=== PATIENT | female | born 1975 | race Hispanic/Latino ===

== ENCOUNTER 2016-07-22 12:49 | Emergency (ER) | payer OTHER ==
[2016-07-22 12:49] VITALS: BMI 24.3
[2016-07-22 12:56] VITALS: BP 134/71; PULSE 79; RESP 18; TEMP 98.1; O2SAT 98
[2016-07-22] MEDS ORDERED: Fluorescein 1 mg Ophthalmic Strip ONE (12:57)
--- NOTE | 2016-07-22 13:10 | ED PDOC ---
HPI: Eye Injury/Pain Time Seen by Provider: 07/22/16 12:59 Chief Complaint (Nursing): Eye Problem Chief Complaint (Provider): Eye Problem History Per: Patient History/Exam Limitations: no limitations Onset/Duration Of Symptoms: Hrs (this morning) Current Symptoms Are (Timing): Still Present Injury To Eye?: No Additional Complaint(s): 40 y/o female presents to the Emergency Department with a complaint of left lower eyelid pain that started as of waking up this morning. Patient denies any active drainage or vision change or loss. No dizziness or headache. Patient does not wear contact lenses. PMD: Ria Gallo MD Past Medical History Reviewed: Historical Data, Nursing Documentation, Vital Signs Vital Signs: Last Vital Signs Temp 98.1 F 07/22/16 12:54 Pulse 79 07/22/16 12:54 Resp 18 07/22/16 12:54 BP 134/71 07/22/16 12:54 Pulse Ox 98 07/22/16 12:54 - Medical History PMH: Anxiety, Gastritis - Surgical History Surgical History: Hernia Repair (as a child - bilateral inguinal repair), Tonsillectomy, Other surgeries: LASIK eye surgery, breast reduction, salpingectomy, abdominoplasty - Family History Family History: States: No Known Family Hx - Living Arrangements Living Arrangements: With Family - Social History Current smoker - smoking cessation education provided: No Ex-Smoker (has not smoked in the last 12 months): No Alcohol: Occasional Drugs: Denies - Immunization History Hx Influenza Vaccination: Yes - Home Medications Home Medications: Ambulatory Orders Medication Instructions Recorded Quetiapine Fumarate [Seroquel] HS 01/26/14 Sertraline [Zoloft] HS 01/26/14 Guaifenesin/Pseudoephedrne HCl 1 tab PO DAILY PRN #30 ter 01/04/15 [Mucinex D 600 mg-60 mg] Methylprednisolone [Medrol Dose 4 mg PO DAILY #21 mg 01/04/15 Pack (21 tabs)] Naproxen 375 mg PO Q8 PRN #21 tab 02/26/15 Ciprofloxacin HCl [Cipro] 500 mg PO BID #14 tablet 08/27/15 Fluconazole [Diflucan] 150 mg PO ONCE #1 tab 09/18/15 Metronidazole [Metrogel] 60 gm VAG HS #1 packet 08/10/16 Erythromycin 0.5% [Ilytocin] 3.5 gm TOP QID #1 tube 07/22/16 - Allergies Allergies/Adverse Reactions: Allergies Allergy/AdvReac Type Severity Reaction Status Date / Time No Known Allergies Allergy Verified 07/22/16 12:53 Review of Systems ROS Statement: Except As Marked, All Systems Reviewed And Found Negative Eyes: Positive for: Pain (left lower eyelid), Eyelid Inflammation (lower left ) . Negative for: Vision Change Gastrointestinal: Negative for: Nausea, Vomiting Neurological: Negative for: Headache, Dizziness Physical Exam - Reviewed Nursing Documentation Reviewed: Yes Vital Signs Reviewed: Yes - Physical Exam Appears: Positive for: Well, Non-toxic, No Acute Distress Head Exam: Positive for: ATRAUMATIC, NORMAL INSPECTION, NORMOCEPHALIC Skin: Positive for: Normal Color, Warm, Dry Eye Exam: Positive for: EOMI, PERRL, Other (Slight swelling of the lower left eye lid consistent with an early developing stye, no active drainage, right eye wnl). Negative for: Normal appearance Neurologic/Psych: Positive for: Alert, Oriented - ECG O2 Sat by Pulse Oximetry: 98 (RA) Pulse Ox Interpretation: Normal Medical Decision Making Medical Decision Making: Time: 12:59 Initial Impression: Left lower eyelid pain Initial Plan: --Stain eye to check for any scratches on the cornea - examination with tetracaine drops and fluoroscein stain reveals no uptake Will d/c with rx erythromycin eye ointment. Patient also instructed to apply warm compresses with Epsom salts to affected areas often as possible. Ophthalmology referral provided, advised follow up in 1-2 days. Scribe Attestation: Documented by Delaney Mcdonnell, acting as a scribe for Misty Roberts PA-C. Provider Scribe Attestation: All medical record entries made by the Scribe were at my direction and personally dictated by me. I have reviewed the chart and agree that the record accurately reflects my personal performance of the history, physical exam, medical decision making, and the department course for this patient. I have also personally directed, reviewed, and agree with the discharge instructions and disposition. Disposition - Clinical Impression Clinical Impression: Sty, external - Patient ED Disposition Is Patient to be Admitted: No Counseled Patient/Family Regarding: Studies Performed, Diagnosis, Need For Followup, Rx Given - Disposition Referrals: Jason Hall MD [Staff Provider] - Disposition: Routine/Home Disposition Time: 13:25 Condition: STABLE Additional Instructions: Apply warm compresses with epsom salts to affected area as often as possible. Over the counter advil or tylenol for pain as needed. Take rx meds as directed. Follow up with eye doctor for any persistent symptoms. Prescriptions: Erythromycin 0.5% [Ilytocin] 3.5 gm TOP QID #1 tube Instructions: Earl (ED)
== END 2016-07-22 14:19 | disposition home or self-care (01) ==
LOC: H.ER 12:49
DX: H00.14 Chalazion left upper eyelid (principal)

== ENCOUNTER 2016-08-04 16:22 | Emergency (ER) | payer OTHER ==
[2016-08-04 16:22] VITALS: BMI 24.3
[2016-08-04 16:37] VITALS: BP 112/71; PULSE 84; RESP 16; TEMP 98.7; O2SAT 99
--- NOTE | 2016-08-04 18:12 | ED PDOC ---
HPI:Nausea, Vomiting, Diarrhea Time Seen by Provider: 08/04/16 16:56 Chief Complaint (Nursing): GI Problem Chief Complaint (Provider): GI Problem History Per: Patient History/Exam Limitations: no limitations Onset/Duration Of Symptoms: Days (x4) Current Symptoms Are (Timing): Still Present Additional Complaint(s): Jane Brown is a 41 year old female with a history of gastritis that presents to the ED with a chief complaint of nausea and a loss of appetite that she has been experiencing for the past four days. Patient denies experiencing any pain. Past Medical History Reviewed: Historical Data, Nursing Documentation, Vital Signs Vital Signs: Last Vital Signs Temp 98.7 F 08/04/16 16:35 Pulse 84 08/04/16 16:35 Resp 16 08/04/16 16:35 BP 112/71 08/04/16 16:35 Pulse Ox 99 08/04/16 16:35 - Medical History PMH: Anxiety, Gastritis - Surgical History Surgical History: Hernia Repair (as a child - bilateral inguinal repair), Tonsillectomy, - Family History Family History: States: Unknown Family Hx - Immunization History Hx Influenza Vaccination: Yes - Home Medications Home Medications: Ambulatory Orders Medication Instructions Recorded Quetiapine Fumarate [Seroquel] HS 01/26/14 Sertraline [Zoloft] HS 01/26/14 Guaifenesin/Pseudoephedrne HCl 1 tab PO DAILY PRN #30 ter 01/04/15 [Mucinex D 600 mg-60 mg] Methylprednisolone [Medrol Dose 4 mg PO DAILY #21 mg 01/04/15 Pack (21 tabs)] Naproxen 375 mg PO Q8 PRN #21 tab 02/26/15 Ciprofloxacin HCl [Cipro] 500 mg PO BID #14 tablet 08/27/15 Fluconazole [Diflucan] 150 mg PO ONCE #1 tab 09/18/15 Metronidazole [Metrogel] 60 gm VAG HS #1 packet 09/18/15 Erythromycin 0.5% [Ilytocin] 3.5 gm TOP QID #1 tube 07/22/16 Famotidine [Pepcid] 20 mg PO BID #28 tab 08/04/16 Ondansetron ODT [Zofran ODT] 4 mg PO QID #20 odt 08/04/16 - Allergies Allergies/Adverse Reactions: Allergies Allergy/AdvReac Type Severity Reaction Status Date / Time No Known Allergies Allergy Verified 07/22/16 12:53 Review of Systems Constitutional: Positive for: Other (loss of appetite) Gastrointestinal: Positive for: Nausea (x4 days). Negative for: Abdominal Pain Physical Exam - Reviewed Nursing Documentation Reviewed: Yes Vital Signs Reviewed: Yes - Physical Exam Appears: Positive for: Non-toxic, No Acute Distress Head Exam: Positive for: ATRAUMATIC, NORMOCEPHALIC Skin: Positive for: Normal Color, Warm Cardiovascular/Chest: Positive for: Regular Rate, Rhythm. Negative for: Murmur Respiratory: Positive for: Normal Breath Sounds. Negative for: Wheezing Gastrointestinal/Abdominal: Positive for: Normal Exam, Soft. Negative for: Tenderness Neurologic/Psych: Positive for: Alert, Oriented. Negative for: Motor/Sensory Deficits - Laboratory Results Result Diagrams: 08/04/16 18:15 08/04/16 18:15 - ECG O2 Sat by Pulse Oximetry: 99 (RA) Pulse Ox Interpretation: Normal Medical Decision Making Medical Decision Making: Impression: Nausea Plan: * CMP * Lipase * Urine dipstick * Urine * Reevaluation 18:10 Patient advised to follow up with Dr. Sullivan. Given Rx for Pepcid and Zofran , stable for discharge home. Scribe Attestation: Documented by Tiffanie Tiwari, acting as a scribe for Latosha Mcnally PA-C. Provider Scribe Attestation: All medical record entries made by the Scribe were at my direction and personally dictated by me. I have reviewed the chart and agree that the record accurately reflects my personal performance of the history, physical exam, medical decision making, and the department course for this patient. I have also personally directed, reviewed, and agree with the discharge instructions and disposition. Disposition - Clinical Impression Clinical Impression: Nausea - Patient ED Disposition Is Patient to be Admitted: No Counseled Patient/Family Regarding: Diagnosis, Need For Followup, Rx Given - Disposition Referrals: Tomasz Sullivan MD, PhD [Staff Provider] - Disposition: Routine/Home Disposition Time: 18:10 Condition: GOOD Prescriptions: Famotidine [Pepcid] 20 mg PO BID #28 tab Ondansetron ODT [Zofran ODT] 4 mg PO QID #20 odt Instructions: Acute Nausea and Vomiting (ED)
[2016-08-04 18:25] LABS: BASO % 0.7 % (0.0-2.0); EOS # 0.1 K/uL (0.0-0.7); EOS % 1.2 % (0.0-4.0); LYMPH # 1.8 K/uL (1.0-4.3); MEAN CELL VOLUME 89.8 fl (81.0-99.0); MEAN CORPUSCULAR HEMOGLOBIN 30.1 pg (27.0-31.0); MEAN CORPUSCULAR HGB CONC 33.5 g/dL (33.0-37.0); MEAN PLATELET VOLUME 7.5 fl (7.2-11.7); MONO # 0.6 K/uL (0.0-0.8); MONO % 9.7 % (0.0-10.0); NEUT # 3.6 K/uL (1.8-7.0); NEUT % 58.4 % (50.0-75.0); RBC 3.98 Mil/uL (3.80-5.20); RED CELL DISTRIBUTION WIDTH 12.7 % (11.5-14.5); WHITE BLOOD COUNT 6.1 K/uL (4.8-10.8)
[2016-08-04 18:39] LABS: ALB/GLOB RATIO 1.5 (1.0-2.1); ALBUMIN 4.8 g/dL (3.5-5.0); ALT/SGPT 34 U/L (9-52); AST/SGOT 54 U/L (14-36); BLOOD UREA NITROGEN 15 mg/dl (7-17); CALCIUM 9.2 mg/dL (8.4-10.2); GFR AFRICAN-AMERICAN > 60; GFR NON-AFRICAN AMERICAN > 60; LIPASE 136 U/L (23-300)
== END 2016-08-04 18:24 | disposition home or self-care (01) ==
LOC: H.ER 16:22
DX: R11.0 Nausea (principal); K29.70 Gastritis, unspecified, without bleeding; F41.9 Anxiety disorder, unspecified

== ENCOUNTER 2016-09-10 12:44 | Emergency (ER) | payer OTHER ==
[2016-09-10 12:45] VITALS: BMI 24.3
[2016-09-10 12:52] VITALS: BP 121/66; PULSE 85; RESP 16; TEMP 98; O2SAT 99
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
--- NOTE | 2016-09-10 14:36 | RAD ---
PROCEDURE: Radiographs of the Left Shoulder HISTORY: trauma COMPARISON: No prior. FINDINGS: BONES: Normal. No fracture. JOINTS: Normal. Glenohumeral and acromioclavicular joints preserved. No osteoarthritis. SOFT TISSUES: Normal. OTHER FINDINGS: None. IMPRESSION: Normal radiographs of the left shoulder.
--- NOTE | 2016-09-10 14:44 | RAD ---
PROCEDURE: Radiographs of the Chest and Left Ribs. HISTORY: shoulder pain COMPARISON: None available. TECHNIQUE: Frontal radiograph of the chest and multiple oblique radiographs of the left ribs were obtained. FINDINGS: LEFT RIBS: Nondisplaced fracture left 9th rib. Questionable nondisplaced fracture adjacent 8th rib. The finding is marked on the study for review. LUNGS: Clear. PLEURA: No pneumothorax or pleural fluid. CARDIOVASCULAR: Normal sized heart. No pulmonary vascular congestion. OTHER FINDINGS: None. IMPRESSION: Nondisplaced acute lateral left rib fractures. No underlying abnormalities.
== END 2016-09-10 16:28 | disposition home or self-care (01) ==
LOC: H.ER 12:44
DX: S22.42XA Multiple fractures of ribs, left side, initial encounter for closed fracture (principal); M25.512 Pain in left shoulder; Y93.55 Activity, bike riding; F41.9 Anxiety disorder, unspecified